=== PATIENT | female | born 1950 | race Caucasian/White ===

== ENCOUNTER 2019-10-17 22:16 | Emergency (ER) | payer OTHER ==
[~2019-10-17] VITALS: Ht 157.5 cm; Wt 74.8 kg
[2019-10-17] MEDS ORDERED: TESSALON PERLE100 M1 PO (22:32)
[2019-10-17] MEDS ORDERED: AUGMENTIN 500-1 EACH PO (22:32)
[2019-10-17] MEDS ORDERED: MUCINEX600 MG PO (22:33)
[2019-10-17 23:39] LABS: INFLUENZA A ANTIGEN Negative (Negative); INFLUENZA B ANTIGEN Negative (Negative)
[2019-10-17] MEDS ORDERED: PROAIR HFA8.5 GM INH (23:55)
[2019-10-17] MEDS ORDERED: PREDNISONE 10 M10 MG PO (23:55)
[2019-10-18 00:15] VITALS: BP 138/68
== END 2019-10-18 00:18 | disposition home or self-care (01) ==
LOC: M.ERS 22:16
PROVIDERS: Physician Assistant
DX: J40 Bronchitis, not specified as acute or chronic (principal); J32.9 Chronic sinusitis, unspecified

== ENCOUNTER → 2019-12-04 | Outpatient (CLI) | payer OTHER ==
[~2019-12-04] MED LIST: AUGMENTIN 500-1 EACH PO; MUCINEX600 MG PO; PREDNISONE 10 M10 MG PO; PROAIR HFA8.5 GM INH; TESSALON PERLE100 M1 PO
== END ==
LOC: M.RAD 08:37
DX: Z12.31 Encounter for screening mammogram for malignant neoplasm of breast (principal)

== ENCOUNTER → 2020-12-08 | Outpatient (CLI) | payer OTHER | LOC: M.RAD 07:57 | PROVIDERS: ATTEND Family Medicine | DX: Z12.31 Encounter for screening mammogram for malignant neoplasm of breast (principal); N64.89 Other specified disorders of breast ==

== ENCOUNTER → 2021-01-12 | Outpatient (CLI) | payer OTHER | LOC: M.RAD 09:54 | PROVIDERS: ATTEND Family Medicine | DX: M81.0 Age-related osteoporosis without current pathological fracture (principal); M85.88 Other specified disorders of bone density and structure, other site; Z78.0 Asymptomatic menopausal state ==

== ENCOUNTER 2021-04-29 17:22 | Emergency (ER) | payer OTHER ==
[~2021-04-29] VITALS: Ht 157.5 cm; Wt 74.8 kg
[2021-04-29] MEDS ORDERED: DESYREL150 MG PO (18:00)
[2021-04-29] MEDS ORDERED: HYDROCODON-ACE1 EAC7 PO (18:01)
[2021-04-29 18:11] VITALS: BP 140/71
== END 2021-04-29 18:12 | disposition home or self-care (01) ==
LOC: M.ERS 17:22
DX: S80.12XA Contusion of left lower leg, initial encounter (principal); V19.88XA Pedal cyclist (driver) (passenger) injured in other specified transport accidents, initial encounter; Y93.55 Activity, bike riding; Y92.89 Other specified places as the place of occurrence of the external cause; Y99.9 Unspecified external cause status